=== PATIENT | male | born 1950 | race Caucasian/White ===

== ENCOUNTER → 2023-07-29 08:18 | Outpatient (REF) | payer MEDICARE, BC, SELFPAY | LOC: RAD 08:18 | PROVIDERS: ATTENDING PHYSICIAN Internal Medicine Critical Care Medicine; FAMILY PHYSICIAN Nurse Practitioner Family | DX: J84.9 Interstitial pulmonary disease, unspecified (principal) | CPT/HCPCS: 71046 ==

== ENCOUNTER → 2023-08-17 17:15 | Outpatient (REF) | payer MEDICARE, BC, SELFPAY | LOC: RCS 17:15 | PROVIDERS: ATTENDING PHYSICIAN Internal Medicine Critical Care Medicine; FAMILY PHYSICIAN Nurse Practitioner Family; REFERRING PHYSICIAN Internal Medicine | DX: J84.9 Interstitial pulmonary disease, unspecified (principal) | CPT/HCPCS: 93306 ==

== ENCOUNTER → 2023-08-19 11:18 | Outpatient (REF) | payer MEDICARE, BC, SELFPAY | LOC: DHCBC/DCA 11:18 | PROVIDERS: ATTENDING PHYSICIAN Internal Medicine; FAMILY PHYSICIAN Nurse Practitioner Family | DX: I10 Essential (primary) hypertension (principal); R06.09 Other forms of dyspnea | CPT/HCPCS: 78452; 93017; A9500; J2785 ==

== ENCOUNTER → 2024-04-05 11:04 | Outpatient (REF) | payer MEDICARE, BC, SELFPAY | LOC: RAD 11:04 | PROVIDERS: ATTENDING PHYSICIAN Nurse Practitioner Family | DX: M25.561 Pain in right knee (principal); M25.562 Pain in left knee | CPT/HCPCS: 73564 ==

== ENCOUNTER → 2024-09-26 07:44 | Outpatient (REF) | payer MEDICARE, BC, SELFPAY | LOC: RAD 07:44 | PROVIDERS: ATTENDING PHYSICIAN Internal Medicine; FAMILY PHYSICIAN Internal Medicine | DX: M25.561 Pain in right knee (principal) | CPT/HCPCS: 73564 ==